=== PATIENT | female | born 1995 | race American Indian/Alaskan Native ===

== ENCOUNTER 2017-06-30 12:34 | Emergency (ER) | payer SELFPAY ==
[2017-06-30] MEDS ORDERED: MOTRIN PO ONE (17:06)
--- NOTE | 2017-06-30 17:06 | Emergency Department Report ---
Upper Extremity - [facility] Chief Complaint: Extremity Injury, Upper Stated Complaint: FINGER/SHOULDER PAIN Time Seen by Provider: 06/30/17 16:10 Upper Extremity: Right Shoulder, Right Middle Finger Occurred When: Today Severity: mild Symptoms: Yes Pain with Movement, No Deformity, No Limited Range of Movement, No Numbness, No Weakness, No Swelling, No Bruising/Ecchymosis, No Laceration or Abrasion Other History: 21-year-old female past medical history obesity presents with complaint of right middle finger pain and right shoulder pain. 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 Patient denies any direct trauma or recent falls no objects have hit her hand or shoulder. Patient states that today her right middle finger and right shoulder became excessively sore while at work. Patient denies any fevers chills paresthesias ED Review of Systems ROS: Stated complaint: FINGER/SHOULDER PAIN Other details as noted in HPI Constitutional: denies: chills, fever Eyes: denies: eye pain, eye discharge, vision change ENT: denies: ear pain, throat pain Respiratory: denies: cough, shortness of breath, wheezing Cardiovascular: denies: chest pain, palpitations Endocrine: no symptoms reported Gastrointestinal: denies: abdominal pain, nausea, diarrhea Genitourinary: denies: urgency, dysuria, discharge Musculoskeletal: denies: back pain, joint swelling, arthralgia Skin: denies: rash, lesions Neurological: denies: headache, weakness, paresthesias Psychiatric: denies: anxiety, depression Hematological/Lymphatic: denies: easy bleeding, easy bruising ED Past Medical Hx - Past Medical History Previous Medical History?: No - Surgical History Past Surgical History?: No - Social History Smoking Status: Current Every Day Smoker Substance Use Type: None - Medications Home Medications: Home Medications Medication Instructions Recorded Confirmed Last Taken Type Acetaminophen/Codeine [Tylenol #3] 1 tab PO Q6H PRN #20 tab 09/03/15 Unknown Rx Amoxicillin [Trimox CAP] 500 mg PO Q8H #30 capsule 09/03/15 Unknown Rx Ibuprofen [Motrin] 600 mg PO Q8H PRN #30 tablet 09/03/15 Unknown Rx Loratadine [Claritin] 10 mg PO DAILY #30 tablet 09/03/15 Unknown Rx Prednisone [predniSONE 10 mg 10 mg PO .TAPER #1 tab.ds.pk 09/03/15 Unknown Rx (6-Day Pack, 21 Tabs)] Naproxen [Naprosyn TAB] 500 mg PO BID PRN #20 tablet 06/30/17 Unknown Rx Upper Extremity Exam - Exam General: Vital signs noted. No distress. Alert and acting appropriately. Head and Torso: No HEENT Abnormality, No Neck Tenderness, No Chest/Lungs Abnormality, No Abdominal Tenderness, No Back Tenderness Shoulder Exam: Yes Normal Range of Motion in Shoulder, No Shoulder Tenderness, No Clavicle Tenderness, No Shoulder Deformity, No AC Joint Tenderness Arm Exam: No Arm/Humerus Tenderness, No Arm Deformity Elbow: No Elbow Tenderness, No Normal Range of Motion in Elbow, No Elbow Deformity Forearm: No Forearm Tenderness, No Forearm Deformity, No Pain with Pronation, No Pain with Supination Wrist: Yes Normal ROM in Wrist, No Wrist Tenderness, No Wrist Deformity, No Snuffbox Tenderness (urgent snuffbox tenderness on exam), No Pain with Axial Thumb Compression Hand: Yes Digit Tenderness (right middle finger pain), Yes Normal ROM in Digit(s ) (range of motion MCPs DIPs PIP is fully intact on exam, strength 5 out of 5 right hand), No Hand Tenderness, No Hand Deformity, No Digit(s) Deformity, No Tendon Dysfunction CMS Exam: Yes Normal Distal Pulses (distal capillary refill less than one second all fingers), No Broken Skin, No Normal Capillary Refill (distal radial and ulnar pulses intact), No Normal Distal Sensation ED Course Vital Signs 06/30/17 12:37 Temperature 98.5 F Pulse Rate 68 Respiratory 16 Rate Blood Pressure 111/70 O2 Sat by Pulse 98 Oximetry ED Medical Decision Making - Medical Decision Making A/P: Right shoulder strain, right finger strain 1-onclinical exam strength is 5/5, patient has no signs of infection or significant swelling of finger. Range of motion right shoulder fully intact, strength 5 out of 5 right upper extremity. Right upper extremity neurovascularly intact, capillary refill less than one second all fingers. Distal pulses are strong and intact 2-trial of NSAIDs, right middle finger splint 3-RICE therapy 4- primary care and outpatient orthopedic follow-up Critical care attestation.: If time is entered above; I have spent that time in minutes in the direct care of this critically ill patient, excluding procedure time. ED Disposition Clinical Impression: Finger pain, right, Tendinitis Right shoulder pain Qualifiers: Chronicity: acute Qualified Code(s): M25.511 - Pain in right shoulder Disposition: - TO HOME OR SELFCARE Is pt being admited?: No Does the pt Need Aspirin: No Condition: Stable Instructions: Shoulder Sprain (ED), Finger Sprain (ED), Tendinitis (ED) Prescriptions: Naproxen [Naprosyn TAB] 500 mg PO BID PRN #20 tablet PRN Reason: Pain Referrals: [facility] [Provider Group] - 3-5 Days [facility] FOWLER MD [Staff Physician] - 3-5 Days Forms: Work/School Release Form(ED), Accompanied Note Time of Disposition: 18:44
--- NOTE | 2017-06-30 18:12 | XRay Report ---
FINAL REPORT PROCEDURE: XR FINGER(S) 2+V RT TECHNIQUE: RIGHT 3rd finger radiographs, including AP, lateral, and oblique views. HISTORY: right middle finger swelling COMPARISON: No prior studies are available for comparison. FINDINGS: Fracture (s) and/or Dislocation(s): None . Alignment: Normal. Joint space(s): Normal . Soft tissues: Normal . Bone mineralization: Normal . Foreign bodies: None . IMPRESSION: Normal Examination
--- NOTE | 2017-06-30 18:12 | XRay Report ---
FINAL REPORT PROCEDURE: XR SHOULDER 2+V RT TECHNIQUE: Right shoulder radiographs including AP views in internal and external rotation and abduction. CPT 80712 HISTORY: right shoulder pain COMPARISON: No prior studies are available for comparison. FINDINGS: Fracture (s) and/or Dislocation(s): None . Joint space(s): Normal . Soft tissues: Normal . Bone mineralization: Normal . Foreign bodies: None . IMPRESSION: Normal Examination
[2017-06-30 23:06] VITALS: BP 130/54
== END 2017-06-30 18:55 | disposition home or self-care (01) ==
LOC: ED 12:34
DX: M76.821 Posterior tibial tendinitis, right leg (principal); M25.511 Pain in right shoulder; F17.210 Nicotine dependence, cigarettes, uncomplicated
CPT/HCPCS: 81025; 99284